=== PATIENT | female | born 1945 ===

== ENCOUNTER 2016-09-19 06:43 | Day surgery (SDC) | payer MEDICARE ==
[2015-06-21 14:02] VITALS: BMI 31.4
[2016-09-19] MEDS ORDERED: Propofol 10 mg/ml Inj (20 ML) ONE ×2 (08:03→08:13)
[2016-09-19] MEDS ORDERED: Lidocaine 1% Inj (20ml) ONE (08:03)
[2016-09-19] MEDS ORDERED: Lactated Ringer's 1,000 ML IV SCH (08:33)
[2016-09-19 08:47] VITALS: O2SAT 99
[2016-09-19 09:20] VITALS: BP 141/64; PULSE 62; RESP 16; TEMP 97.6
== END 2016-09-19 10:02 | disposition home or self-care (01) ==
LOC: ENDO 06:43
PROVIDERS: ATTEND Specialist
DX: Z12.11 Encounter for screening for malignant neoplasm of colon (principal); D12.3 Benign neoplasm of transverse colon; K57.30 Diverticulosis of large intestine without perforation or abscess without bleeding; K64.8 Other hemorrhoids; E11.9 Type 2 diabetes mellitus without complications; I10 Essential (primary) hypertension; E78.5 Hyperlipidemia, unspecified; D64.9 Anemia, unspecified
CPT/HCPCS: 45380; 82948; 88305; J2405; J2704; J7120

== ENCOUNTER 2018-08-21 06:34 | Outpatient (CLI) | payer MEDICARE | END 2018-08-21 06:35 | disposition home or self-care (01) | LOC: CARDIO 06:34 | DX: R07.89 Other chest pain (principal); E11.9 Type 2 diabetes mellitus without complications ==

== ENCOUNTER 2018-09-11 21:44 | Emergency (ER) | payer MEDICARE ==
[2018-09-11 21:44] VITALS: BMI 32.8
[2018-09-11 21:52] VITALS: RESP 18
[2018-09-11 21:56] VITALS: TEMP 97.5
[2018-09-11 22:22] VITALS: BP 142/74
--- NOTE | 2018-09-11 22:28 | ED PDOC ---
Arrival/HPI - General Chief Complaint: Headache Time Seen by Provider: 09/11/18 22:00 Historian: Patient - History of Present Illness Narrative History of Present Illness (Text): 09/11/18 22:27 A 73 year old female, whose past medical history includes hypertension and diabetes type 2, presents to the emergency department complaining of left parietal headache with intermittent nausea for the past couple of weeks. Patient reports she takes 1 tablet of Advil intermittently, with no relief. Notes headache had been constant. Patient denies any injuries/trauma, vomiting, dizziness, vision changes, numbness/weakness to extremities, abdominal pain, chest pain, shortness of breath, or any other complaints at this time. PMD: Dr. Peyman Molina Time/Duration: Other (past couple of weeks) Past Medical History - Provider Review Nursing Documentation Reviewed: Yes - Cardiac Hx Cardiac Disorders: Yes Hx Hypertension: Yes - Neurological Hx Paralysis: No - Endocrine/Metabolic Hx Endocrine Disorders: Yes Hx Diabetes Mellitus Type 2: Yes - Hematological/Oncological Hx Blood Disorders: Yes Hx Blood Transfusions: No Hx Blood Transfusion Reaction: No Hx Cancer: Yes (R breast, lumpectomy) - Musculoskeletal/Rheumatological Hx Musculoskeletal Disorders: No - Psychiatric Hx Emotional Abuse: No Hx Physical Abuse: No Hx Substance Use: No - Surgical History Other/Comment: R lumpectomy - Anesthesia Hx Anesthesia Reactions: No Hx Malignant Hyperthermia: No - Suicidal Assessment Feels Threatened In Home Enviroment: No Family/Social History - Physician Review Nursing Documentation Reviewed: Yes Family/Social History: No Known Family HX Smoking Status: Never Smoked Hx Alcohol Use: No Hx Substance Use: No Hx Substance Use Treatment: No Allergies/Home Meds Allergies/Adverse Reactions: Allergies No Known Allergies Allergy (Verified 05/20/14 13:05) Home Medications: Home Meds Medication Instructions Recorded Confirmed Letrozole 2.5 mg PO DAILY 06/21/15 09/11/18 Lisinopril/Hydrochlorothiazide 10 - 12.5 mg PO QAM 06/21/15 09/11/18 [Lisinopril-Hctz 20-25 mg Tab] Omeprazole [Prilosec] 40 mg PO DAILY 06/21/15 09/11/18 metFORMIN [glucOPHAGE] 500 mg PO DAILY 09/10/16 09/11/18 Atorvastatin [Lipitor] 10 mg PO DIN 08/21/18 09/11/18 Review of Systems - Physician Review All systems were reviewed & negative as marked: Yes - Review of Systems Respiratory: absent: SOB Cardiovascular: absent: Chest Pain Gastrointestinal: Nausea. absent: Abdominal Pain, Vomiting Neurological: Headache (left-side parietal region). absent: Dizziness, Other (no numbness/weakness) Physical Exam Vital Signs Reviewed: Yes Vital Signs Temp Pulse Resp BP Pulse Ox 09/11/18 22:19 82 18 142/74 97 09/11/18 21:53 97.5 F L 09/11/18 21:52 76 18 148/77 97 Blood Pressure: Normal Pulse: Regular Respiratory Rate: Normal Appearance: Positive for: Well-Appearing, Non-Toxic, Comfortable Pain Distress: None Mental Status: Positive for: Alert and Oriented X 3 - Systems Exam Head: Present: Atraumatic, Normocephalic Pupils: Present: PERRL Extroacular Muscles: Present: EOMI Conjunctiva: Present: Normal Mouth: Present: Moist Mucous Membranes Neck: Present: Normal Range of Motion Respiratory/Chest: Present: Clear to Auscultation, Good Air Exchange. No: Respiratory Distress, Accessory Muscle Use Cardiovascular: Present: Regular Rate and Rhythm, Normal S1, S2. No: Murmurs Abdomen: No: Tenderness, Distention, Peritoneal Signs Back: Present: Normal Inspection Upper Extremity: Present: Normal Inspection. No: Cyanosis, Edema Lower Extremity: Present: Normal Inspection. No: Edema Neurological: Present: GCS=15, CN II-XII Intact, Speech Normal Skin: Present: Warm, Dry, Normal Color. No: Rashes Psychiatric: Present: Alert, Oriented x 3, Normal Insight, Normal Concentration Medical Decision Making ED Course and Treatment: 09/11/18 22:30 Impression: 73 year old female with left parietal headache with nausea. Plan: -- Head CT -- Toradol -- Zofran -- IV Fluids -- Reassess and disposition Progress Notes: 09/12/18 00:[address] IMPRESSION: 2.2x1.8 cm left frontal extra-axial mildly hyperdense lesion, probably a meningioma. Unchanged. Unchanged adjacent buckling of the left frontal cortex without associated edema or acute white matter changes. No CT evidence of an acute pathology. Dictator: Delmer Faria M.D Findings discussed with patient and . On re-eval patient appears comfortable and in no distress. No neurological deficits noted. Advised over the counter pain medications at home. Follow up with PMD. Return to the ED for any new or worsening symptoms. - Scribe Statement The provider has reviewed the documentation as recorded by the Anna Marie Sparks Provider Scribe Attestation: All medical record entries made by the Scribbandar were at my direction and personally dictated by me. I have reviewed the chart and agree that the record accurately reflects my personal performance of the history, physical exam, medical decision making, and the department course for this patient. I have also personally directed, reviewed, and agree with the discharge instructions and disposition. Disposition/Present on Arrival - Present on Arrival Any Indicators Present on Arrival: No History of DVT/PE: No History of Uncontrolled Diabetes: No Urinary Catheter: No History of Decub. Ulcer: No History Surgical Site Infection Following: None - Disposition Have Diagnosis and Disposition been Completed?: Yes Diagnosis: Headache Disposition: HOME/ ROUTINE Disposition Time: 01:15 Condition: STABLE Discharge Instructions (ExitCare): Headache, Adult (DC) Additional Instructions: RUTH KAPOOR, thank you for letting us take care of you today. Your provider was Wilma Singh MD and you were treated for HEAD PAIN. The emergency medical care you received today was directed at your acute symptoms. If you were prescribed any medication, please fill it and take as directed. It may take several days for your symptoms to resolve. Return to the Emergency Department if your symptoms worsen, do not improve, or if you have any other problems. Please contact your doctor or call one of the physicians/clinics you have been referred to that are listed on the Patient Visit Information form that is included in your discharge packet. Bring any paperwork you were given at discharge with you along with any medications you are taking to your follow up visit. Our treatment cannot replace ongoing medical care by a primary care provider outside of the emergency department. Thank you for allowing the [facility] team to be part of your care today. If you had an X-Ray or CT scan: A Radiologist will review the ED reading if any change in treatment is needed we will contact you. If you had a blood, urine, or wound culture: It will take several days for the results, if any change in treatment is needed we will contact you. If you had an STI test: It will take 48 hours for the results. Please call after 1 week if you have not heard back. Referrals: Peyman Molina [Primary Care Provider] - Follow up with primary Forms: [employer] ([place])
[2018-09-11] MEDS: Sodium Chloride 0.9% 1,000 ML IV STA ×2 (22:41→23:07)
[2018-09-12 02:14] VITALS: PULSE 80; O2SAT 98
--- NOTE | 2018-09-12 09:19 | CT ---
Date of service: 09/11/2018 PROCEDURE: CT HEAD WITHOUT CONTRAST. HISTORY: headache x3 weeks COMPARISON: CT 05/20/2014 TECHNIQUE: Axial computed tomography images were obtained through the head/brain without intravenous contrast. Radiation dose: Total exam DLP = 840.77 mGy-cm. This CT exam was performed using one or more of the following dose reduction techniques: Automated exposure control, adjustment of the mA and/or kV according to patient size, and/or use of iterative reconstruction technique. FINDINGS: HEMORRHAGE: No intracranial hemorrhage. BRAIN: There is a hyperdense lesion in the left anterior cranial fossa measuring 19 mm in diameter and 10 mm in height. This is consistent with a meningioma. There is no significant change from the prior study VENTRICLES: Unremarkable. No hydrocephalus. CALVARIUM: Unremarkable. PARANASAL SINUSES: Unremarkable as visualized. No significant inflammatory changes. MASTOID AIR CELLS: Unremarkable as visualized. No inflammatory changes. OTHER FINDINGS: The report concurs with the preliminary [facility] report IMPRESSION: Small left frontal meningioma. No acute intracranial findings
== END 2018-09-12 02:14 | disposition home or self-care (01) ==
LOC: ED 21:44
DX: R51 Headache (principal); I10 Essential (primary) hypertension; E11.9 Type 2 diabetes mellitus without complications
CPT/HCPCS: 70450; 96374; 96375; 99285; J1885; J2405